=== PATIENT | male | born 1965 | race Two or more races ===

== ENCOUNTER → 2022-01-03 11:22 | Outpatient (BNVA) | payer OTHER, SELFPAY | PROVIDERS: PCP Internal Medicine; Visit Provider Psychiatry & Neurology Neurology ==

== ENCOUNTER → 2022-03-13 14:45 | Outpatient (REF) | payer OTHER, SELFPAY | LOC: HO.SL 14:45 | PROVIDERS: PCP Internal Medicine; Visit Provider Psychiatry & Neurology Neurology | DX: Z13.89 Encounter for screening for other disorder (principal) ==

== ENCOUNTER → 2022-03-17 15:11 | Outpatient (BNVA) | payer OTHER, SELFPAY | PROVIDERS: PCP Internal Medicine; Visit Provider Psychiatry & Neurology Neurology | DX: Z13.89 Encounter for screening for other disorder (principal) ==

== ENCOUNTER → 2022-07-10 16:14 | Outpatient (REF) | payer OTHER, SELFPAY | LOC: HO.SL 16:14 | PROVIDERS: PCP Internal Medicine; Visit Provider Psychiatry & Neurology Neurology | DX: G47.9 Sleep disorder, unspecified (principal); R06.83 Snoring; R51.9 Headache, unspecified; G47.10 Hypersomnia, unspecified | CPT/HCPCS: 95806 ==

== ENCOUNTER → 2022-12-18 09:43 | Outpatient (BNVA) | payer OTHER, SELFPAY | PROVIDERS: PCP Internal Medicine; Visit Provider Psychiatry & Neurology Neurology | DX: G47.9 Sleep disorder, unspecified (principal); R06.83 Snoring; R51.9 Headache, unspecified; G47.10 Hypersomnia, unspecified; G20 Parkinson's disease; M54.2 Cervicalgia ==

== ENCOUNTER → 2023-03-19 10:18 | Outpatient (BNVA) | payer OTHER, SELFPAY | PROVIDERS: PCP Internal Medicine; Visit Provider Psychiatry & Neurology Neurology ==

== ENCOUNTER → 2023-06-19 20:30 | Outpatient (REF) | payer OTHER, SELFPAY | LOC: HO.SL 20:30 | PROVIDERS: PCP Internal Medicine; Visit Provider Psychiatry & Neurology Neurology | DX: G47.10 Hypersomnia, unspecified (principal); G47.9 Sleep disorder, unspecified; R06.83 Snoring | CPT/HCPCS: 95810 ==

== ENCOUNTER → 2023-06-19 22:22 | Outpatient (BNV) | payer OTHER, SELFPAY | PROVIDERS: PCP Internal Medicine; Visit Provider Psychiatry & Neurology Neurology | DX: R06.83 Snoring (principal) | CPT/HCPCS: 95810 ==

== ENCOUNTER 2023-07-07 10:28 | Outpatient (AMB) | payer OTHER, SELFPAY ==
--- NOTE | 2023-07-07 10:31 | A.OFFVIS_ITS ---
Intake Vital Signs 07/07/23 10:32 Height 5 ft 5 in Weight 153 lb 4 oz BMI 25.5 BP 120/66 Blood Pressure Location Rt brachial Position Sitting Pulse 104 H Pulse Source Pulse Oximeter Pulse Oximetry (%) 98 Oxygen Delivery Method Room Air Intake Visit Reasons: 3 mnts f/u for Sleep disorders-lvm Intake Note: Pt presents to the office today for a 3 month follow up for sleep disorders. Pt states he feels tired at the end of the day after working and then the next day he states its hard to get up. Pt states he is still working every other day. Pt states his headaches are better than before but occasionally he will get a headache. He also states sometimes his brain feels foggy and its hard to concentrate. Allergies No Known Allergies Allergy (Verified 07/07/23 10:34) Medication List - Last Reconciled 07/07/23 by Kirsten Reinoso MD baclofen 10 mg PO BEDTIME bupropion HCl 100 mg PO BID carbidopa-levodopa 25-100 mg 2 tabs PO TID clonazepam 1 mg PO BID magnesium oxide 400 mg PO DAILY metformin 500 mg PO BID omeprazole 20 mg PO DAILY tamsulosin 0.4 mg PO DAILY venlafaxine ER 150 mg PO DAILY HPI HPI Comments History of Present Illness Details 58y/o male calls for follow up of parkinsons disease, neck tightness, morning headache.He is doing better since he decreased work hours.His in lab sleep study was normal. He had mild fragmentation .He is on watermelon harvesting supervisor disability. He wakes up with headaches Increase in sinemet has helped. He has a psychiatrist. No falls. he has gained weight PFSH Medical History Headache Hypersomnia Neck pain Parkinsons disease Sleep disorder Surgical History No pertinent past surgical history Family History Father COPD (chronic obstructive pulmonary disease) Social History Alcohol intake: never Patient Tobacco Use Status: Never used Tobacco Physical Exam Vital Signs: Last Vital Signs Pulse 104 H 07/07/23 10:32 BP 120/66 07/07/23 10:32 Pulse Ox 98 07/07/23 10:32 Oxygen Delivery Method Room Air 07/07/23 10:32 BMI result Body Mass Index 25.5 Const General: cooperative, healthy appearing and comfortable Nutritional Appearance: average body habitus Orientation/consciousness: patient oriented x3 Neuro Other: Mild decreased facial expression and blink No tremors FFM mild decreased L gait- decreased arm swing left UE Tone normal General: patient oriented x3 and tone normal Cranial nerves: Yes CN's II-XII intact bilaterally Gait exam (Neuro): Other gait observations present (smaller steps ) Psych Affect: Depressed mood present Assessment & Plan Assessment & Plan (1) Parkinsons disease: Code(s): G20 - Parkinson's disease (2) Neck pain: Code(s): M54.2 - Cervicalgia (3) Headache: Code(s): R51.9 - Headache, unspecified (4) Sleep disorder: Code(s): G47.9 - Sleep disorder, unspecified Plan Continue sinemet 25/100 2tabs tid continue baclofen 5 mg qhs and 10 mg qhs on weekends F/u with psychiatry Medications: New polyethylene glycol 3350 (Miralax) 17 grams PO DAILY 238 grams 3RF Coding Level of Care Code Est Pt Level 4 (58609) Diagnoses Parkinsons disease G20 Neck pain M54.2 Headache R51.9 Sleep disorder G47.9
[2023-07-07 10:32] VITALS: BP 120/66; PULSE 104; O2SAT 98; BMI 25.5
== END 2023-07-07 10:55 | disposition home or self-care (01) ==
PROVIDERS: Visit Provider Psychiatry & Neurology Neurology
DX: G20 Parkinson's disease (principal); M54.2 Cervicalgia; R51.9 Headache, unspecified; G47.9 Sleep disorder, unspecified
CPT/HCPCS: 99214

== ENCOUNTER → 2023-07-07 10:28 | Outpatient (BNVA) | payer OTHER, SELFPAY | PROVIDERS: Visit Provider Psychiatry & Neurology Neurology | DX: G47.9 Sleep disorder, unspecified (principal); R06.83 Snoring; G47.10 Hypersomnia, unspecified; G20 Parkinson's disease; M54.2 Cervicalgia; R51.9 Headache, unspecified ==